=== PATIENT | male | born 1945 | race Caucasian/White ===

== ENCOUNTER 2021-10-01 16:13 | Inpatient (IN) | payer OTHER, MEDICAID ==
[2021-10-01 17:55] VITALS: BMI 22.1
[2021-10-01] MEDS ORDERED: Loperamide HCl 2 MG CAP PO PRN ×2 (19:03→19:15)
[2021-10-01] MEDS ORDERED: Zolpidem Tartrate 5 MG TAB PO PRN (19:04)
[2021-10-01] MEDS ORDERED: Calcium Carbonate 500 MG ChewTAB PO PRN (19:06)
[2021-10-01] MEDS ORDERED: Acetaminophen 650 MG Suppository PR PRN (19:08)
[2021-10-01] MEDS ORDERED: Acetaminophen 500 MG TAB PO PRN (19:09)
[2021-10-01] MEDS ORDERED: Ondansetron PF 4 MG/2 ML Vial IVP PRN ×2 (19:09→19:15)
[2021-10-01] MEDS ORDERED: Ondansetron ODT 4 MG TAB SL PRN (19:15)
[2021-10-01] MEDS ORDERED: HYDROcodone/Acetaminophen 5/325 mg Tablet PO PRN (19:15)
[2021-10-01] MEDS: HYDROcodone/Acetaminophen 5/325 mg Tablet PO PRN (20:12)
[2021-10-01] MEDS: Senokot S 8.6-50 MG TAB PO PRN (20:13)
[2021-10-01] MEDS ORDERED: clonazePAM 0.5 MG TAB PO PRN (20:15)
[2021-10-01] MEDS ORDERED: Albuterol 200 PUFF (6.7GM INHALER) INH PRN (20:26)
[2021-10-01] MEDS: Carbidopa/Levodopa 25-100 mg Tablet PO SCH (23:30)
[2021-10-01] MEDS: Amoxicillin/Potassium Clav 500 MG TAB PO SCH (23:30)
[2021-10-01] MEDS: Tamsulosin HCl 0.4 MG CAP PO SCH (23:31)
[2021-10-01] MEDS: Atorvastatin Calcium 40 MG TAB PO SCH (23:31)
[2021-10-01] MEDS: Amiodarone 200 MG TAB PO SCH (23:31)
[2021-10-02] MEDS: HYDROcodone/Acetaminophen 5/325 mg Tablet PO PRN (03:49)
[2021-10-02] MEDS: Albuterol 200 PUFF (6.7GM INHALER) INH SCH ×3 (06:27→17:26)
[2021-10-02] MEDS: Carbidopa/Levodopa 25-100 mg Tablet PO SCH ×3 (08:55→20:32)
[2021-10-02] MEDS: Aspirin Chewable 81 MG TAB PO SCH (08:55)
[2021-10-02] MEDS: Amiodarone 200 MG TAB PO SCH ×2 (08:56→20:32)
[2021-10-02] MEDS: Senokot S 8.6-50 MG TAB PO PRN (08:56)
[2021-10-02] MEDS: Amoxicillin/Potassium Clav 500 MG TAB PO SCH ×2 (08:56→20:33)
[2021-10-02] MEDS: Finasteride 5 MG TAB PO SCH (08:56)
[2021-10-02] MEDS: clonazePAM 0.5 MG TAB PO PRN ×2 (14:31→18:38)
[2021-10-02] MEDS: traMADol HCl 50 MG TAB PO PRN (17:32)
[2021-10-02] MEDS: Acetaminophen 325 MG TAB PO PRN (18:38)
[2021-10-02] MEDS: Tamsulosin HCl 0.4 MG CAP PO SCH (20:31)
[2021-10-02] MEDS: Atorvastatin Calcium 40 MG TAB PO SCH (20:32)
[2021-10-02] MEDS: DULoxetine 30 MG CAP PO SCH (20:32)
[2021-10-03] MEDS: traMADol HCl 50 MG TAB PO PRN ×3 (00:10→20:48)
[2021-10-03] MEDS: Albuterol 200 PUFF (6.7GM INHALER) INH SCH ×5 (00:12→23:25)
[2021-10-03] MEDS: Carbidopa/Levodopa 25-100 mg Tablet PO SCH ×3 (08:52→21:36)
[2021-10-03] MEDS: Aspirin Chewable 81 MG TAB PO SCH (08:52)
[2021-10-03] MEDS: Finasteride 5 MG TAB PO SCH (08:52)
[2021-10-03] MEDS: Amoxicillin/Potassium Clav 500 MG TAB PO SCH ×2 (08:52→20:46)
[2021-10-03] MEDS: Amiodarone 200 MG TAB PO SCH ×2 (08:52→20:50)
[2021-10-03] MEDS: Acetaminophen 325 MG TAB PO PRN ×3 (08:53→20:48)
[2021-10-03] MEDS: clonazePAM 0.5 MG TAB PO PRN ×2 (08:54→20:49)
[2021-10-03] MEDS: Senokot S 8.6-50 MG TAB PO PRN (08:57)
[2021-10-03] MEDS: Bisacodyl 5 MG TAB PO PRN (17:42)
[2021-10-03] MEDS: Tamsulosin HCl 0.4 MG CAP PO SCH (20:47)
[2021-10-03] MEDS: DULoxetine 30 MG CAP PO SCH (20:47)
[2021-10-03] MEDS: Atorvastatin Calcium 40 MG TAB PO SCH (20:50)
[2021-10-04] MEDS: Albuterol 200 PUFF (6.7GM INHALER) INH SCH ×4 (05:48→23:28)
[2021-10-04] MEDS: Acetaminophen 325 MG TAB PO PRN ×3 (05:48→20:30)
[2021-10-04] MEDS: Amoxicillin/Potassium Clav 500 MG TAB PO SCH ×2 (07:47→20:31)
[2021-10-04] MEDS: Aspirin Chewable 81 MG TAB PO SCH (07:47)
[2021-10-04] MEDS: Finasteride 5 MG TAB PO SCH (07:48)
[2021-10-04] MEDS: traMADol HCl 50 MG TAB PO PRN ×3 (07:48→23:28)
[2021-10-04] MEDS: clonazePAM 0.5 MG TAB PO PRN ×2 (07:48→20:32)
[2021-10-04] MEDS: Amiodarone 200 MG TAB PO SCH ×2 (07:48→20:31)
[2021-10-04] MEDS: Bisacodyl 5 MG TAB PO PRN (07:48)
[2021-10-04] MEDS ORDERED: Bisacodyl 10 MG SUPP PR PRN (08:33)
[2021-10-04] MEDS ORDERED: Fleet Enema 133 ML BOT PR PRN (08:34)
[2021-10-04] MEDS: Carbidopa/Levodopa 25-100 mg Tablet PO SCH ×3 (11:12→20:32)
[2021-10-04] MEDS: DULoxetine 30 MG CAP PO SCH (20:30)
[2021-10-04] MEDS: Atorvastatin Calcium 40 MG TAB PO SCH (20:31)
[2021-10-04] MEDS: Tamsulosin HCl 0.4 MG CAP PO SCH (20:31)
[2021-10-05] MEDS: Albuterol 200 PUFF (6.7GM INHALER) INH SCH ×4 (05:14→23:30)
[2021-10-05] MEDS: Amiodarone 200 MG TAB PO SCH ×2 (08:10→21:06)
[2021-10-05] MEDS: Acetaminophen 325 MG TAB PO PRN ×3 (08:10→23:30)
[2021-10-05] MEDS: Amoxicillin/Potassium Clav 500 MG TAB PO SCH ×2 (08:10→21:08)
[2021-10-05] MEDS: Carbidopa/Levodopa 25-100 mg Tablet PO SCH ×3 (08:10→21:05)
[2021-10-05] MEDS: clonazePAM 0.5 MG TAB PO PRN ×2 (08:10→21:11)
[2021-10-05] MEDS: Aspirin Chewable 81 MG TAB PO SCH (08:10)
[2021-10-05] MEDS: traMADol HCl 50 MG TAB PO PRN ×2 (08:11→21:06)
[2021-10-05] MEDS ORDERED: clonazePAM 0.5 MG TAB PO SCH (10:58)
[2021-10-05] MEDS: Finasteride 5 MG TAB PO SCH (11:14)
[2021-10-05] MEDS: Atorvastatin Calcium 40 MG TAB PO SCH (21:05)
[2021-10-05] MEDS: Tamsulosin HCl 0.4 MG CAP PO SCH (21:07)
[2021-10-05] MEDS: DULoxetine 30 MG CAP PO SCH (21:08)
[2021-10-06] MEDS: traMADol HCl 50 MG TAB PO PRN ×3 (02:54→21:39)
[2021-10-06] MEDS: Acetaminophen 325 MG TAB PO PRN ×3 (04:13→21:38)
[2021-10-06] MEDS: clonazePAM 0.5 MG TAB PO PRN ×2 (05:37→15:47)
[2021-10-06] MEDS: Albuterol 200 PUFF (6.7GM INHALER) INH SCH ×3 (06:10→17:20)
[2021-10-06] MEDS: Amiodarone 200 MG TAB PO SCH ×2 (09:45→21:37)
[2021-10-06] MEDS: Finasteride 5 MG TAB PO SCH (09:45)
[2021-10-06] MEDS: Amoxicillin/Potassium Clav 500 MG TAB PO SCH ×2 (09:45→21:35)
[2021-10-06] MEDS: Aspirin Chewable 81 MG TAB PO SCH (09:45)
[2021-10-06] MEDS: Carbidopa/Levodopa 25-100 mg Tablet PO SCH ×3 (09:45→21:35)
[2021-10-06] MEDS ORDERED: Lorazepam 1 MG TAB PO PRN (20:18)
[2021-10-06] MEDS: Tamsulosin HCl 0.4 MG CAP PO SCH (21:36)
[2021-10-06] MEDS: DULoxetine 30 MG CAP PO SCH (21:36)
[2021-10-06] MEDS: Atorvastatin Calcium 40 MG TAB PO SCH (21:38)
[2021-10-07] MEDS: Albuterol 200 PUFF (6.7GM INHALER) INH SCH ×2 (00:19→05:49)
[2021-10-07 06:09] VITALS: BP 135/71; TEMP 98.3
[2021-10-07] MEDS: Amoxicillin/Potassium Clav 500 MG TAB PO SCH (08:43)
[2021-10-07] MEDS: Aspirin Chewable 81 MG TAB PO SCH (08:43)
[2021-10-07] MEDS: Carbidopa/Levodopa 25-100 mg Tablet PO SCH (08:43)
[2021-10-07] MEDS: Finasteride 5 MG TAB PO SCH (08:44)
[2021-10-07] MEDS: Amiodarone 200 MG TAB PO SCH (08:44)
[2021-10-07] MEDS: traMADol HCl 50 MG TAB PO PRN (08:49)
== END 2021-10-07 12:30 | disposition home or self-care (01) | DRG 951 ==
LOC: BURMED 17:15
PROVIDERS: ADMIT Family Medicine; ATTEND Family Medicine
DX: Z09 Encounter for follow-up examination after completed treatment for conditions other than malignant neoplasm (principal); Z95.1 Presence of aortocoronary bypass graft; I25.10 Atherosclerotic heart disease of native coronary artery without angina pectoris; F41.1 Generalized anxiety disorder; N40.1 Benign prostatic hyperplasia with lower urinary tract symptoms; R35.0 Frequency of micturition; F32.A Depression, unspecified; J45.909 Unspecified asthma, uncomplicated; E78.5 Hyperlipidemia, unspecified; G20 Parkinson's disease; G89.29 Other chronic pain; Z90.49 Acquired absence of other specified parts of digestive tract; Z79.899 Other long term (current) drug therapy; Z79.82 Long term (current) use of aspirin; Z79.51 Long term (current) use of inhaled steroids; Z98.890 Other specified postprocedural states
CPT/HCPCS: Q0162